=== PATIENT | male | born 2000 | race Caucasian/White ===

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

== ENCOUNTER 2023-08-18 16:01 | Emergency (ER) | payer BC ==
[~2023-08-18] VITALS: Ht 187 cm; Wt 114.0 kg
[~2023-08-18 16:01] MED LIST: AMOX-358 PO
[2023-08-18 16:09] VITALS: BP 146/95
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
[2023-08-18] MEDS ORDERED: fentaNYL INJECTION 100 MCG/2 ML VIAL IVP ONE ×2 (16:45→17:30)
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
[2023-08-18] MEDS ORDERED: TRAM50TA3 PO (18:15)
== END 2023-08-18 18:20 | disposition home or self-care (01) ==
LOC: EDUNIT# 16:01 → ER 16:04
DX: S62.91XA Unspecified fracture of right hand, initial encounter for closed fracture (principal); W22.09XA Striking against other stationary object, initial encounter
CPT/HCPCS: 29125; 73130